=== PATIENT | female | born 1930 | race Caucasian/White ===

== ENCOUNTER 2017-03-21 12:31 | Inpatient (IN) ==
[2017-03-21] MEDS ORDERED: NS 1,000 ML IV ONE ×2 (12:55→19:36)
[2017-03-21] MEDS ORDERED: BOOSTRIX VACCINE IM ONE (12:55)
--- NOTE | 2017-03-21 13:27 | Diag Imaging Result Doc PS360 ---
EXAM : CT HEAD/C-SPINE W/O CONTRAST HISTORY: INJURY TECHNIQUE: CT brain without contrast. CT cervical spine without contrast. Dose reduction protocol. COMPARISON: None. FINDINGS: Head: No parenchymal hemorrhage. No epidural or subdural hematoma. No subarachnoid hemorrhage. No mass identified on this noncontrasted exam. No hydrocephalus. There is mild atrophy. No sinus opacification. Cervical spine: Mild scoliosis with mild degenerative spine changes. No precervical soft tissue swelling. No subluxation. No fracture. IMPRESSION: Head: No hemorrhage. No injury. Mild atrophy. Cervical spine: No acute fracture. Electronically signed by Ronal Oglesby 03/21/2017 1:25 PM
--- NOTE | 2017-03-21 13:31 | Diag Imaging Result Doc PS360 ---
EXAM: CHEST-1 VIEW HISTORY: AMS TECHNIQUE: AP stretcher semierect COMPARISON: 10/14/2015 FINDINGS: The lungs are hyperexpanded. The pulmonary vessels are small. The heart is not enlarged. No pneumonia. No pleural effusions identified. IMPRESSION: Negative exam. Electronically signed by Ronal Oglesby 03/21/2017 1:28 PM
[2017-03-21 13:46] LABS: BASO% 0.1 % (0.0-0.8); EOS# 0.04 X1000 (0.0-0.7); EOS% 0.3 % (0.0-10.0); HEMATOCRIT 48.5 % (37.0-47.0); HEMOGLOBIN 16.6 g/dL (12.0-16.0); IMM GRAN# 0.02 X1000 (0.0-0.04); IMM GRAN% 0.1 % (0.0-0.5); LYMPH# 1.08 X1000 (1.2-3.4); MANUAL DIFF NEEDED? NO; MCH 31.9 PG (27-31); MCHC 34.2 g/dL (33-37); MCV 93.3 FL (81-99); MONO# 0.53 X1000 (0.11-0.59); MONO% 3.9 % (1.7-9.3); MPV 10.5 FL (7.4-10.4); NEUT% 87.6 % (42.2-75.2); PLT 294 X1000 (130-400)
--- NOTE | 2017-03-21 14:05 | EKG Report ---
Test Performed on : 03/21/2017 2:03:04 PM Test Reason : AMS Blood Pressure : / mmHG Vent. Rate : 099 BPM Atrial Rate : 099 BPM P-R Int : 154 ms QRS Dur : 064 ms QT Int : 380 ms P-R-T Axes : 074 063 045 degrees QTc Int : 487 ms Normal sinus rhythm. Right atrial enlargement Borderline ECG When compared with ECG of 17-SEP-2015 07:06, Nonspecific T wave abnormality no longer evident in Lateral leads QT has lengthened Unconfirmed Result
[2017-03-21 14:08] LABS: ALBUMIN 4.5 g/dL (3.5-5.0); CALCIUM 8.9 mg/dL (8.8-10.2); MAGNESIUM 2.1 mg/dL (1.5-2.7); POTASSIUM 3.7 mmol/L (3.5-5.1); TOTAL BILIRUBIN 0.4 mg/dL (0.20-1.00); TOTAL PROTEIN 8.4 g/dL (6.3-8.3)
[2017-03-21 14:27] LABS: URINE CULTURE PL NEEDED? NO
[2017-03-21] MEDS ORDERED: ZOFRAN IV ONE (14:53)
--- NOTE | 2017-03-21 14:54 | PROVIDER DOCUMENTATION ---
This chart was entered by Jocleyn Vernon Scribe, acting as scribe for Jeremiah Haley MD. HPI-Syncope/Dizziness - General Chief Complaint: Fall Stated Complaint: fall Time Seen by Provider: 03/21/17 12:36 Source: patient, family (daughter), EMS Allergies/Adverse Reactions: Patient Allergies Allergy/AdvReac Type Severity Reaction Status Date / Time meperidine HCl * AdvReac Mild Unknown Verified 03/21/17 12:39 [From Demerol] Home Medications: Home Medication List Medication Instructions Recorded Confirmed Last Taken Type Cholecalciferol (Vitamin D3) 1,000 unit PO DAILY 03/08/17 03/21/17 03/08/17 History [Vitamin D3] Pantoprazole [Protonix] 40 mg PO DAILY@0700 03/08/17 03/21/17 03/08/17 History - History of Present Illness-Syncope/Dizzy Nature of Presenting Problem: pt states BARBACK she was walking into her kitchen became tired and laid her head on the counter, when she woke up she was in the floor with blood around her head. pt does not remember the syncopal episode. pt has edema and dried blood to occipital scalp and c/o nausea and vomiting so she has not ate since Tuesday. pt c/o fatigue and weakness and just wants rest. daughter states when she called her at 1045 her mother didnt sound right in her speech so she left work to check on her. pt can normally ambulate well in her home but when daughter arrived pt was only able to take a few steps with her walker and had to lean against the wall to rest If witnessed syncope, by whom?: not witnessed Prior Episodes: reports: single episode today Onset/Duration: reports: unsure Timing: reports: improving Position/Activity at time of episode: reports: standing Symptoms prior to episode: reports: nausea/vomiting (3 days), unknown (just becoming tired). denies: confusion, diaphoresis Context: reports: lost consciousness, other (fell backwards from standing) Loss of Consciousness: unsure Current Symptoms: reports: none/feels normal, nausea (nausea is her normal per pt). denies: vomiting Recently Seen Here or By Another Healthcare Provider: No Review of Systems - Adult - REVIEW OF SYSTEMS - ADULT Constitutional: reports: see katy BAER. denies: chills, fever, night sweats , weight gain, weight loss Eyes: denies: dry eyes, eye pain Ears, Nose, Mouth & Throat: denies: ear discharge, ear pain, sinus problem, throat pain Cardiovascular: reports: syncope. denies: chest pain, palpitations Respiratory: denies: cough, shortness of breath, wheezing Gastrointestinal: reports: abdominal pain (nausea), nausea, poor appetite (when pt eats a large meal she will vomit). denies: diarrhea Genitourinary: reports: no symptoms reported Musculoskeletal: denies: back pain, neck pain Integumentary: reports: see HPI, other (pt has small bruise to occipital head with mild bleeding) Neurological: reports: syncope. denies: dizziness/vertigo, headache/migraines, tremors Psychiatric: reports: no symptoms reported Endocrine: reports: no symptoms reported Hematologic/Lymphatic: reports: no symptoms reported Allergic/Immunologic: reports: no symptoms reported Past History - Adult - PAST MEDICAL HISTORY-ADULT Review of Records: reports: Old Records Reviewed, Nursing Assessment Review, Medications Reviewed Gastrointestinal: reports: diverticulosis, GERD - PRIOR SURGERIES/PROCEDURES Surgical/Procedure History: reports: none - IMMUNIZATION STATUS Childhood Immunizations: See Nurse Assessment Flu Vaccine: See Nurse Assessment - SOCIAL HISTORY Smoking: cigarettes, less than 1 pack/day Provider spent 3-5 mins advising pt. on dangers of tobacco.: Discussed manners to quit use, and f/u contacts for add'l counseling. Substance Use: denies Alcohol Use Frequency: never Living Situation: alone (daughter lives down the road a short distance) Physical Exam-General - PHYSICAL EXAM-ADULT Initial Vital Signs Reviewed: Yes - CONSTITUTIONAL General Appearance: appears well, alert, no apparent distress, thin - EYES Eyes: PERRL/EOMI, pink conjunctivae - HEAD, EARS, NOSE, MOUTH & THROAT HENMT: normocephalic/atraumatic, moist mucous membranes, normal ENT inspection, TMs normal, pharynx normal - NECK Neck: non-tender, full range of motion, supple, normal inspection - RESPIRATORY Respiratory: chest non-tender, lungs clear, normal breath sounds, no pleuratic chest pain, no respiratory distress, no accessory muscle use - CARDIOVASCULAR Cardiovascular: normal peripheral pulses, regular rate, rhythm, no edema, no gallop, no JVD, no murmur - GASTROINTESTINAL (ABDOMEN) Abdominal Exam: normal bowel sounds, non tender, soft, distended (per normal per daughter). negative: guarding, rigid, rebound, tenderness - LYMPHATIC Lymphatic: no adenopathy - MUSCULOSKELETAL Back Exam: normal inspection, no CVA tenderness, no vertebral tenderness Extremity: normal range of motion, non-tender, normal inspection, no pedal edema , no calf tenderness, normal capillary refill - SKIN Integumentary: normal color, normal turgor, warm/dry - NEUROLOGIC Neurologic: latexer II-XII nml as tested, grossly normal, no motor/sensory deficits - PSYCHIATRIC Psych/Mental Status: normal mood/affect, normal thought content, normal thought process, oriented x 3 Progress - PLAN OF CARE/RESULTS Progress/Plan/Lab Results: Vital Signs - 8 hr 03/21/17 12:32 Pulse Rate 99 H Respiratory Rate 18 Blood Pressure 110/75 O2 Sat by Pulse Oximetry 97 Laboratory Results - last 24 hr 03/21/17 03/21/17 03/21/17 13:00 13:00 13:00 WBC RBC Hgb Hct MCV MCH MCHC RDW Std Deviation Plt Count MPV Immature Gran % (Auto) Neut % (Auto) Lymph % (Auto) [place] % (Auto) Eos % (Auto) Baso % (Auto) Immature Gran # (Auto) Neut # (Auto) Lymph # (Auto) [place] # (Auto) Eos # (Auto) Baso # (Auto) Sodium 137 Potassium 3.7 Chloride 89 L Carbon Dioxide 29 Anion Gap 20 BUN 26 H Creatinine 1.8 H Estimated GFR/1.73 m2 27 BUN/Creatinine Ratio 14 Glucose 171 H Calculated Osmolality 283 Calcium 8.9 Magnesium 2.1 Total Bilirubin 0.40 AST 27 ALT 24 Alkaline Phosphatase 70 Creatine Kinase 59 Troponin T < 0.010 Lgz-N-Rbysafucodq Pept 448 Total Protein 8.4 H Albumin 4.5 Globulin 4.0 Albumin/Globulin Ratio 1.0 Lipase 35 Plasma/Serum Ethyl Alc 03/21/17 03/21/17 13:00 13:00 WBC 13.54 H RBC 5.20 Hgb 16.6 H Hct 48.5 H MCV 93.3 MCH 31.9 H MCHC 34.2 RDW Std Deviation 15.4 H Plt Count 294 MPV 10.5 H Immature Gran % (Auto) 0.1 Neut % (Auto) 87.6 H Lymph % (Auto) 8.0 L [place] % (Auto) 3.9 Eos % (Auto) 0.3 Baso % (Auto) 0.1 Immature Gran # (Auto) 0.02 Neut # (Auto) 11.85 H Lymph # (Auto) 1.08 L [place] # (Auto) 0.53 Eos # (Auto) 0.04 Baso # (Auto) 0.02 Sodium Potassium Chloride Carbon Dioxide Anion Gap BUN Creatinine Estimated GFR/1.73 m2 BUN/Creatinine Ratio Glucose Calculated Osmolality Calcium Magnesium Total Bilirubin AST ALT Alkaline Phosphatase Creatine Kinase Troponin T Wgw-V-Yzedtpfizda Pept Total Protein Albumin Globulin Albumin/Globulin Ratio Lipase Plasma/Serum Ethyl Alc Orders Category Date Time Status Cardiac Monitoring DIRECTED Care 03/21/17 12:55 Active Finger Stick Blood Sugar (ED) DIRECTED Care 03/21/17 12:55 Active Saline Loc NOW Care 03/21/17 12:55 Active CHEST-1 VIEW [RAD] Stat Exams 03/21/17 12:[address] HEAD/C-SPINE W/O CONTRAST [CT] Stat Exams 03/21/17 12:55 Completed ALCOHOL BLOOD Stat Lab 03/21/17 13:00 Completed CBC WITH ELECTRONIC DIFF [HEME] Stat Lab 03/21/17 13:00 Completed CK PROFILE [SP CHEM] Stat Lab 03/21/17 13:00 Completed COMPREHENSIVE METABOLIC PANEL [CHEM] Stat Lab 03/21/17 13:00 Completed LIPASE [CHEM] Stat Lab 03/21/17 13:00 Completed MAGNESIUM [CHEM] Stat Lab 03/21/17 13:00 Completed PRO B-NATRIURETIC PEPTIDE Stat Lab 03/21/17 13:00 Completed TROPONIN T Stat Lab 03/21/17 13:[address] W/POSS RFLX CULT [URINALYSIS] Stat Lab 03/21/17 14:15 Received 0.9% Sodium Chloride Inj [Ns] 1,000 ml Med 03/21/17 12:55 Active IV 150 mls/hr Diph,Pertuss(Acell),Tet Vac/Pf [Boostrix Vaccine] Med 03/21/17 12:55 Discontinued 0.5 ml IM .ONCE ONE Pulse Oximetry Stat Oth 03/21/17 12:55 Active EKG [EKG] Stat Ther 03/21/17 12:55 Draft Result Diagrams: 03/21/17 13:00 03/21/17 13:00 - XRAY 1 XRAY Study: Chest Impression: Normal - CT/MRI 1 CT Study: Head, Neck Impression: Normal - CONSULTS/PCP/HOSPITALIST Notification #1 *Consult/PCP/Hospitalist*: Dr. Ramires Time Discussed: 14:51 Consult Disposition: Will see in ED, Admit Departure - Departure Date of Disposition Decision: 03/21/17 Time of Disposition Decision: 14:51 DIAGNOSIS: Head injury, Acute renal failure, Nausea & vomiting Disposition: ADMITTED INPATIENT 09 Certified Medical Emergency: Emergent Condition: Stable Referrals and Follow-Ups: Ely Hinds MD [Primary Care Provider] - - Critical Care Note This patient required my direct & personal management of CC.: No Attestation - Physician/ GUICHO Attestation Patient care was provided by Advanced Practice Provider:: No The physician spent face to face time with patient:: Yes Advanced Practice Provider documentation review:: Supervising physician onsite and consulted in the evaluation and care of this patient. The physician did have a face to face encounter with the patient. This chart was documented by the indicated scribe, (Jocelyn Vernon Scribe) and accurately reflects the services I performed and decisions made by me, Jeremiah Haley MD, as attested by the provider's signature.
[2017-03-21 15:01] LABS: BILIRUBIN URINE 1+ (NEGATIVE); BLOOD URINE 2+ (NEGATIVE); CLARITY CLEAR (CLEAR); COLOR YELLOW; LEUKOCYTES URINE 2+ (NEGATIVE); NITRITE URINE POSITIVE (NEGATIVE); PH URINE 6.5; PROTEIN URINE 2+(100 mg/dL) mg/dL (NEGATIVE); UROBILINOGEN URINE 1+(1 mg/dL)
[2017-03-21 15:11] LABS: URINE EPITHELIAL CELLS <10 /HPF (<10); URINE RBC <10 /HPF (<10); URINE SOURCE CLEAN CATCH; URINE WBC <10 /HPF (<10)
[2017-03-21] MEDS ORDERED: ZOFRAN IV PRN (18:32)
[2017-03-21] MEDS ORDERED: SODIUM CHLORIDE 0.9% INJ SCH (19:30)
[2017-03-21] MEDS ORDERED: FLAGYL 500 MG/NS 500 MG/100 ML IVPB IV SCH (19:30)
[2017-03-21] MEDS ORDERED: MISC. PHARMACY COMMUNICATION SCH (19:45)
--- NOTE | 2017-03-21 20:14 | HISTORY AND PHYSICAL ---
PRIMARY CARE PHYSICIAN: Dr. Ely Hinds. CHIEF COMPLAINT: Fall. HISTORY OF PRESENT ILLNESS: This is an 86-year-old female who presented to the emergency room after having a syncopal episode. The patient states that she remembers walking into her kitchen. She laid her head on the counter, then she awoke on the floor with blood next to her. She has no memory of passing out nor can she remember why she laid her head on the counter. She was not incontinent of stool or urine. She did state that she has been nauseated since Tuesday and has not eaten any food and has taken very little liquid in. She denies any vomiting or any diarrhea or constipation. She did undergo a flexible sigmoidoscopy in February 2017 for diarrhea and new fecal incontinence. At that time she was found to have diverticulosis with a surgical absent sigmoid colon with large external hemorrhoids. 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 She is followed by Dr. Lorin Osorio. In review of her labs, she was found to have a creatinine of 1.8 with her baseline being 0.7 - 0.8 over the last 5 years. PAST MEDICAL HISTORY: 1. Intestinal pseudoobstruction with intermittent vomiting. 2. Bacterial overgrowth. 3. Diverticulosis. 4. History of fecal incontinence. 5. Gastroesophageal reflux disease. 6. Gastroparesis. PAST SURGICAL HISTORY: Colon resection with removal of sigmoid colon. SOCIAL HISTORY: She smokes a pack a day. She denies alcohol or illicit drug use. ALLERGIES: Demerol. HOME MEDICATIONS: Vitamin D3 and Protonix. REVIEW OF SYSTEMS: A 14-point review of systems was discussed with the patient with pertinent positives stated in HPI. She denies chest pain, palpitations, dizziness, vomiting, black or bloody vomitus, black or bloody stools, hematuria, dysuria, frequency or urgency. PHYSICAL EXAMINATION: VITAL SIGNS: Blood pressure is 117/67 with a heart rate of 107, respirations are 16, temperature is 98.8 degrees. Orthostatics lying blood pressure 121/74 with a heart rate of 89. Sitting 103/78 with a heart rate of 95. Standing 99/68 with a heart rate of 101. She is slightly orthostatic. HEENT: Head is normocephalic, atraumatic. Pupils equal, round, react to light. EOMs are intact. Sclerae anicteric. Mucous membranes are dry. NECK: Supple with trachea midline. CARDIOVASCULAR: Regular rate and rhythm. S1, S2 appreciated. PULMONARY: Breath sounds are clear with no increased work of breathing noted. GASTROINTESTINAL: Abdomen is soft, nontender, nondistended with bowel sounds in all 4 quadrants. EXTREMITIES: No clubbing, cyanosis, or edema. Calves nontender. Pulses are palpable x 4. MUSCULOSKELETAL: Good range of motion of joints. SKIN: Warm and dry with a small bruise to her occipitis with bleeding controlled. LABS: WBC is 13.5 with hemoglobin 16, hematocrit 48.5, and platelets of 294,000. Sodium is 137, potassium 3.7, BUN 26, creatinine 1.8 with a glucose of 171. Microscopic urine is positive nitrites with less than 10 microscopic red blood cells and less than 10 microscopic white blood cells. This could actually be due to contamination. Urine culture will be pending. CT of the head and cervical spine reveals no hemorrhage, no injury, mild atrophy with no acute fracture to the cervical spine. Chest x-ray revealed a negative exam, hyperexpanded lungs. The pulmonary vessels are small. No pneumonia and no pleural effusions. ASSESSMENT: 1. Syncope with collapse. 2. Head injury. 3. Acute renal failure secondary to dehydration. 4. Dehydration. 5. Nausea and vomiting. 6. 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 7. Gastroparesis. 8. Diverticulosis. 9. Leukocytosis. PLAN: She will be admitted to the hospital. We will give her clear liquids as tolerated, gentle IV hydration. We will trend labs in the morning. She is slightly orthostatic. Will repeat orthostatics in the morning and tomorrow afternoon. Neuro checks. Will start Flagyl for the chronic bacterial overgrowth. We will confer with Dr. Osorio who is her linux consultant. We will give IV Protonix. Further treatments pending hospital course. Dictated by ERICKSON Israel for Favio Ramires MD cc: ERICKSON Israel MD
[2017-03-21] MEDS: PROTONIX IV SCH (20:24)
[2017-03-21] MEDS: ZOSYN 2.25 GM in NS 50 ML IV SCH (20:24)
--- NOTE | 2017-03-21 20:32 | PROGRESS NOTE ---
DATE: 03/21/2017 ADDENDUM: Patient seen and examined by myself. Full note dictated by nurse practitioner. SUBJECTIVE: Patient notes that she has not been feeling well for the past couple of days. She has had increased fatigue and weakness. States that she has had some falling and has been unable to care for herself at home. Therefore, her daughter brought her to the emergency department. Her baseline creatinine on record was 0.5, her current creatinine is 1.8. She states she has had nausea and vomiting for the last 3 or 4 days and has been unable to keep anything down. She has been having increasing reflux, has not been taking any kind of reflux medications, however. OBJECTIVE: Vital signs are stable. Patient is awake and alert. She is in no distress. She is feeling okay currently. She has not tried to eat or drink anything. She has not had any vomiting since being in the hospital. ASSESSMENT: The patient is dehydrated. She is having nausea and vomiting, certainly having some reflux symptoms. We will place her in the hospital. IV fluids. Reflux medication. We will continue to follow. Further orders as needed. cc: Favio Ramires MD
[2017-03-22] MEDS: ZOSYN 2.25 GM in NS 50 ML IV SCH ×2 (04:48→21:07)
[2017-03-22] MEDS: PROTONIX IV SCH ×2 (06:30→21:08)
[2017-03-22 06:51] LABS: ALBUMIN 3.3 g/dL (3.5-5.0); MAGNESIUM 1.6 mg/dL (1.5-2.7); POTASSIUM 3.2 mmol/L (3.5-5.1); TOTAL BILIRUBIN 0.3 mg/dL (0.20-1.00); TOTAL PROTEIN 5.9 g/dL (6.3-8.3)
[2017-03-22 06:53] LABS: HEMATOCRIT 37.3 % (37.0-47.0); HEMOGLOBIN 12.3 g/dL (12.0-16.0); MCH 31.1 PG (27-31); MCV 94.2 FL (81-99); MPV 10.6 FL (7.4-10.4); RBC 3.96 XMIL (4.2-5.4)
[2017-03-22 07:04] LABS: CALCIUM 6.8 mg/dL (8.8-10.2)
[2017-03-22] MEDS ORDERED: CALCIUM GLUCONATE 1 GM in NS 50 ML IV ONE (07:30)
[2017-03-22] MEDS: POTASSIUM CHLORIDE IV ONE ×3 (08:00→14:40)
[2017-03-22] MEDS: NS IV ONE ×3 (08:00→14:40)
[2017-03-22] MEDS: CALCIUM GLUCONATE IV ONE ×3 (08:00→14:40)
--- NOTE | 2017-03-22 08:46 | PROGRESS NOTE ---
DATE: 03/22/2017 SUBJECTIVE: Ms. Sinclair states that she feels better today. She has no nausea. She does state that she is hungry. She denies any nausea, vomiting, any shortness of breath, any chest pain. OBJECTIVE: Vital Signs: Blood pressure is 100/54 with a heart rate of 84, respirations are 16, temperature is 98.9 degrees oral with room air saturations 98%. Orthostatics vital signs, lying blood pressure is 102/56 with a heart rate of 80. Sitting blood pressure is 91/59 with a heart rate of 66, and standing blood pressure is 84/54 with a heart rate of 85. She is slightly orthostatic. Cardiovascular: Regular rate and rhythm. S1 and S2 appreciated. Pulmonary: Breath sounds are clear. No increased work of breathing noted. Gastrointestinal: Abdomen is soft, nontender, nondistended with bowel sounds in all 4 quadrants. Back: No CVAT. No spine tenderness. Extremities: No clubbing, cyanosis, or edema. Calves are nontender. Pulses are palpable x4. Skin: Warm and dry with no rashes or lesions noted. LABS: WBC is 8.6, with a hemoglobin of 12.3, hematocrit 37.3 and platelets of 187,000. Sodium is 138, potassium is 3.2, BUN is 24, creatinine 1.1 with a glucose of 102. Calcium is 6.8, corrected is 7.2. Urine culture is pending. PROBLEM LIST: 1. Syncope with collapse. The patient has had no further syncopal episodes. We will continue with telemetry and monitor. 2. Head injury. This was superficial. She has no further bleeding. 3. Acute renal failure secondary to hydration. Creatinine is improving. We will continue with gentle hydration and trend labs. 4. Dehydration. We will continue with gentle hydration. 5. Nausea and vomiting resolved. She has had no further since admission. 6. 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 She has been placed on Zosyn with renal dosing. Dr. Osorio is following with us. CT of the abdomen and pelvis with oral contrast is pending today. 7. Gastroparesis. Aware. 8. Diverticulosis. Aware. 9. Leukocytosis. Improved. 10. Hypokalemia/hypocalcemia. Will replete electrolytes and trend labs daily. Dictated by ERICKSON Israel for Rahat Gomez MD cc: ERICKSON Israel MD
[2017-03-22] MEDS ORDERED: ZOSYN 2.25 GM in NS 50 ML IV SCH (11:00)
--- NOTE | 2017-03-22 11:35 | Diag Imaging Result Doc PS360 ---
EXAM: CT ABD/PELVIS ORAL CONTR ONLY INDICATION: PSEUDOOBSTRUCTION COLON TECHNIQUE: Dose reduction protocol was used. COMPARISON: 06/23/2013 FINDINGS: There is marked distention of the stomach with fluid and gas in the lumen and even worse distention of the duodenum. Essentially the entire remainder of the small bowel is also distended containing fluid and droplets of gas but to a lesser degree. On the last CT from 2013 there was similar distention of the duodenum but it was less severe. As such, it may represent a chronic functional obstruction. However, it would be difficult to distinguish this from a superimposed partial mechanical obstruction given that it does appear worse than the prior study. There is stool throughout the colon but the colon is not significantly distended. No definite free abdominal gas is appreciated. There is marked intrahepatic and extrahepatic biliary dilatation. This was seen on the previous study as well, but it has worsened. The spleen is unremarkable. There is mild left adrenal gland thickening that appear stable suggesting mild hyperplasia. The kidneys are grossly unremarkable. The pancreas is grossly unremarkable. The bones are osteopenic and there are degenerative changes involving the spine. IMPRESSION: 1.Small bowel distention as described with marked duodenal and gastric distention that is worse than the previous study in 2013. Please see the above discussion. 2.Biliary dilatation that has worsened during the interval. Electronically signed by Roland Sarkar 03/22/2017 11:33 AM
[2017-03-22 14:03] LABS: OCCULT BLOOD 1 NEGATIVE (NEGATIVE)
--- NOTE | 2017-03-22 15:00 | PROGRESS NOTE ---
DATE: 03/22/2017 Briefly this is a 86-year-old female with a partial small bowel obstruction. CT shows worsening gastric distention and obstruction. She had significant gastric distention with fluid inside. Her abdominal exam was soft, nontender, distended bowel sounds were quiet, decreased bowel sounds. We discussed the case with Dr. Osorio. She would prefer her having her over at the other hospital so she can be under her care. I do think she needs an NG tube for decompression. Per Dr. Osorio she has recurrent gastroparesis and gastric distention. This is not a new issue but is a worsening issue from previous. Her syncope and collapse is likely related to just dehydration and those kinds of issues. Disposition will be per Dr. Osorio when she gets evaluated over there. She is empirically on antibiotics. She does have clinically a urinary tract infection so we will need to set up a urine culture. She is on so we will continue to follow very closely. cc: Rahat Gomez MD
--- NOTE | 2017-03-22 15:58 | Diag Imaging Result Doc PS360 ---
EXAM: CHEST-PORTABLE INDICATION: NGT Placement TECHNIQUE: One view COMPARISON: 03/21/2017 FINDINGS: The newly placed NG tube is identified. It is only a couple centimeters below the GE junction and the tip is assumed to be in the stomach. Consider advancement of 3 to 4 cm for more optimal position. The lungs remain hyperinflated and are grossly clear, otherwise. There is no new consolidation. Cardiac silhouette is stable. IMPRESSION: Interval placement of NG tube as detailed above. Electronically signed by Roland Sarkar 03/22/2017 3:55 PM
[2017-03-22] MEDS ORDERED: NS 1,000 ML IV SCH (17:46)
[2017-03-22] MEDS ORDERED: ZOFRAN IV PRN (19:20)
[2017-03-22] MEDS ORDERED: SODIUM CHLORIDE 0.9% INJ SCH (19:30)
[2017-03-22] MEDS: NS 1,000 ML IV SCH (21:07)
[2017-03-23] MEDS: ZOSYN 2.25 GM in NS 50 ML IV SCH ×4 (01:40→20:31)
[2017-03-23 06:32] LABS: BASO% 0.3 % (0.0-0.8); EOS# 0.02 X1000 (0.0-0.7); EOS% 0.3 % (0.0-10.0); HEMATOCRIT 38.8 % (37.0-47.0); HEMOGLOBIN 12.8 g/dL (12.0-16.0); IMM GRAN# 0.02 X1000 (0.0-0.04); IMM GRAN% 0.3 % (0.0-0.5); LYMPH# 0.67 X1000 (1.2-3.4); LYMPH% 8.5 % (20.5-51.1); MANUAL DIFF NEEDED? YES; MCH 31.8 PG (27-31); MCV 96.3 FL (81-99); MONO% 5.1 % (1.7-9.3); MPV 10.2 FL (7.4-10.4); NEUT% 85.5 % (42.2-75.2); PLT 174 X1000 (130-400); RBC 4.03 XMIL (4.2-5.4)
[2017-03-23 06:57] LABS: AGAP 20; ALBUMIN 3.6 g/dL (3.5-5.0); ALKALINE PHOSPHATASE 54 U/L (32-104); BUN 22 mg/dL (8-22); CALCIUM 7.1 mg/dL (8.8-10.2); CHLORIDE 106 mmol/L (98-107); COSMO 280; GOT 20 U/L (10-30); GPT 17 U/L (10-36); POTASSIUM 3.5 mmol/L (3.5-5.1); SODIUM 140 mmol/L (136-145); TCO2 14 mmol/L (25-35); TOTAL BILIRUBIN 0.42 mg/dL (0.20-1.00); TOTAL PROTEIN 6.1 g/dL (6.3-8.3)
[2017-03-23 07:34] LABS: BANDS 1 % (0-1); LYMPHS 8 % (21-51); MONO 4 % (1-9)
[2017-03-23] MEDS: PROTONIX IV SCH ×2 (08:11→08:13)
[2017-03-23] MEDS: NS 1,000 ML IV SCH (08:12)
[2017-03-23] MEDS ORDERED: CALCIUM GLUCONATE 4.65 MEQ in NS 50 ML IV ONE (09:00)
--- NOTE | 2017-03-23 13:51 | PROGRESS NOTE ---
DATE: 03/23/2017 SUBJECTIVE: This patient states that she is feeling much better. She is tolerating the ice chips. OBJECTIVE: Her abdomen is still distended but, compared with yesterday, it is better. She is still having diarrhea but, compared with yesterday, it is better as well. No acute events overnight. Gastroenterology Department has been consulted pending recommendations. OBJECTIVE: Vital Signs: Temperature 98.3 degrees, pulse 80, respiratory rate 18, blood pressure 111/47, oxygen saturation 98% on room air. HEENT: Head normocephalic. No trauma. PERRLA. Neck supple. No JVD. No masses. Central trachea. Chest clear to auscultation. No wheezing. No rales. Abdomen soft, distended. Mild tenderness to palpation at the level of the epigastric area. Positive bowel sounds. Extremities: No edema. No clubbing. No cyanosis. Neurologic: The patient is alert and oriented x3. No focal deficits. LABORATORY: WBC 7.8, hemoglobin 12.8, hematocrit 38.8, platelets 174,000. Sodium 140, potassium 3.5, chloride 106, bicarbonate 14. BUN 22, creatinine 0.8. Glucose 49. Calcium 7.1. Albumin 3.6. ASSESSMENT AND PLAN: 1. Syncope, no more episodes of syncope. Probably, this patient was severely dehydrated. She looks more hydrated today. We will continue to monitor. 2. Head injury. This was superficial and no more for further bleeding. 3. Acute renal failure secondary to dehydration, resolved. 4. Dehydration, better. Continue with IV fluids. 5. Diarrhea. This is getting better. Continue with IV fluids pending gastroenterology evaluation. 6. Nausea and vomiting, resolved. 7. Gastroparesis, aware. This patient is tolerating ice chips. 8. Diverticulosis, aware. 9. Leukocytosis, improved. 10. Hypocalcemia. I will replace the calcium today. cc: Vincent Ventura MD
[2017-03-23] MEDS: D5 NS 1,000 ML IV SCH (15:36)
[2017-03-23] MEDS ORDERED: ZANTAC IV SCH (18:15)
[2017-03-23] MEDS: ZANTAC IV SCH (21:13)
[2017-03-23] MEDS: NS IV SCH (21:13)
[2017-03-24] MEDS: ZOSYN 2.25 GM in NS 50 ML IV SCH ×3 (01:32→12:59)
--- NOTE | 2017-03-24 04:24 | CONSULTATION ---
DATE OF CONSULTATION: 03/23/2017 REFERRING PHYSICIAN: Rahat Gomez MD. PRIMARY CARE PROVIDER: Ely Hinds MD. INDICATION FOR CONSULTATION: 1. Diarrhea. 2. Abdominal pain. 3. Intestinal pseudoobstruction. 4. Nausea. 5. Volume depletion. HISTORY OF PRESENT ILLNESS: The patient is an 86-year-old white female, who has been followed in our clinic. 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 The patient states that approximately 3-4 days prior to admission, she developed malaise and fatigue as well as increasing diarrhea. She was evaluated in our clinic and placed on a course of Flagyl as her insurance co-pay on the Xixan is more than a $1000. On Flagyl, she developed nausea and a metallic taste in her mouth. As a consequence, she stopped eating and drinking as much. She became dehydrated and sustained a fall on the floor with a laceration to the posterior scalp. After her fall, the patient does not recall how long she was unconscious on the floor. However, she crawled into bed and went back to sleep for several hours. When she awakened, she reports that the nausea was worse, and she had a severe headache. She contacted her daughter, who brought her to the emergency room. She was admitted to [facility]. Because of her marked increased abdominal distention, a CT scan was performed and was remarkable for worsening small bowel distention with gastric and duodenal distention that was worse than her previous study in 2013. In addition, she has had long-standing intra and extrahepatic ductal dilation of unknown cause. There has been interval worsening of the ductal dilation on CT scan as well. Clinically, she had nausea with dry heaves but no vomiting. She reports the onset of diarrhea after initiation of treatment with Protonix therapy. Because of the above, we are asked to participate in her care. PAST MEDICAL HISTORY: 1. Intestinal pseudoobstruction. 2. Bacterial overgrowth. 3. Diverticulosis. 4. Fecal incontinence. 5. Gastroesophageal reflux disease. 6. Gastroparesis. 7. Diverticulosis. 8. Marasmus. 9. Osteoporosis. 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 11. History of recurrent erosive esophagitis. 12. Hiatal hernia. 13. Hypokalemia. 14. Gastric ulcers. 15. Duodenal ulcers. 16. Right hip fracture after a fall in August 2015. SURGICAL HISTORY: 1. Partial colectomy for diverticular disease. 2. Right hip surgery. 3. Bilateral cataract surgery. MEDICATION ALLERGIES: 1. Demerol. 2. The patient develops diarrhea with PPI therapy, which is newly diagnosed this admission. HOME MEDICATIONS: 1. Protonix. 2. Vitamin D 1000 units daily. SOCIAL HISTORY: The patient smokes 1 pack of cigarettes per day, and has done so for many years. She denies alcohol, recreational drug use. FAMILY HISTORY: Noncontributory. PHYSICAL EXAMINATION: Vital signs: Her blood pressure is 98/50, pulse is 94, respirations 16, temperature of 98.6 degrees. Her blood pressure supine is 98/50, pulse of 94, sitting is 85/44 with a pulse of 88. Standing blood pressure is 85/47, with a pulse of 94. HEENT: Negative for jaundice. Her oropharyngeal mucosa membranes are dry. Pulmonary: Lungs are clear to auscultation with normal expiratory effort. Cardiovascular: Reveals regular rate and rhythm with no gallops or rubs. Abdominal: Reveals hypoactive bowel sounds. The abdomen is soft and distended, but is near her baseline. There is no rebound or guarding. There is a nasogastric tube in place for gastric decompression. Extremities: Bilaterally are negative for cyanosis, clubbing, or edema. OBJECTIVE DATA: Remarkable for hemoglobin 12.8 with hematocrit of 38.8, and a white count of 7.84, and 174,000 platelets. Sodium is 140, potassium 3.5, chloride 106, CO2 of 14, BUN 22, creatinine 0.8 with a glucose of 49. Her calcium is 7.1, total bilirubin 0.42, AST 20, ALT 17, alkaline phosphatase 54, total protein 6.1, and albumin of 3.6. IMPRESSION: 1. Nausea with vomiting. 2. Diarrhea. 3. Hypoglycemia. 4. Known intestinal pseudoobstruction. 5. Dilated hepatic ducts with no evidence of elevated liver function tests. RECOMMENDATION: 1. The patient most likely is suffering from bacterial overgrowth again. She has historically responded to nasogastric tube decompression along with IV antibiotics. Therefore, I recommend that we continue IV Zosyn. She may be able to transition to oral Augmentin for a total of 10 days of antibiotics once the nausea with vomiting resolves. 2. The patient had diarrhea when we administered IV Protonix. Therefore, I will discontinue the Protonix and begin ranitidine 50 mg IV q.8 hours. At home, I will transition her to Zantac 150 mg p.o. b.i.d. 3. Continue vitamin D supplementation. 4. The patient has improved clinically following 24 hours of decompression. Therefore, I would advance her to a clear liquid diet especially in light of her hypoglycemia. 5. Tomorrow, I will obtain an MRI of the abdomen to further evaluate the hepatobiliary tree including the pancreas. This is worrisome in light of her failure to thrive. 6. Additional recommendations to follow based on her clinical course. cc: MD Rahat Ambrosio MD Bernice Swain, MD Omar J. Sosa-Chirinos, MD
[2017-03-24] MEDS: D5 NS 1,000 ML IV SCH ×3 (05:21→15:00)
[2017-03-24] MEDS: NS IV SCH ×3 (05:21→20:44)
[2017-03-24] MEDS: ZANTAC IV SCH ×3 (05:21→20:44)
[2017-03-24 06:23] LABS: BASO% 0.1 % (0.0-0.8); EOS# 0.02 X1000 (0.0-0.7); EOS% 0.2 % (0.0-10.0); HEMATOCRIT 32.1 % (37.0-47.0); HEMOGLOBIN 10.9 g/dL (12.0-16.0); IMM GRAN# 0.02 X1000 (0.0-0.04); IMM GRAN% 0.2 % (0.0-0.5); LYMPH% 6.8 % (20.5-51.1); MANUAL DIFF NEEDED? YES; MCH 32.2 PG (27-31); MCV 94.7 FL (81-99); MONO# 0.43 X1000 (0.11-0.59); MONO% 4.9 % (1.7-9.3); MPV 10.3 FL (7.4-10.4); NEUT% 87.8 % (42.2-75.2); PLT 167 X1000 (130-400); RBC 3.39 XMIL (4.2-5.4)
[2017-03-24 07:05] LABS: AGAP 11; BUN 14 mg/dL (8-22); CALCIUM 7.8 mg/dL (8.8-10.2); CHLORIDE 110 mmol/L (98-107); COSMO 283; POTASSIUM 3.2 mmol/L (3.5-5.1); SODIUM 140 mmol/L (136-145); TCO2 19 mmol/L (25-35)
[2017-03-24] MEDS ORDERED: KLOR-CON PO ONE (07:29)
[2017-03-24 08:41] LABS: LYMPHS 13 % (21-51); MONO 3 % (1-9)
--- NOTE | 2017-03-24 11:00 | Diag Imaging Result Doc PS360 ---
EXAM: MRI ABDOMEN W/O CONTRAST (MRCP) INDICATION: increased ductal dilation TECHNIQUE: COMPARISON: CT abdomen and pelvis dated 03/22/2017. No prior MRIs available for comparison. FINDINGS: As was seen on the recent CT, there is prominent intrahepatic and extrahepatic biliary dilatation. The common bile duct measures up to 1.6 cm in diameter. As the common bile duct approaches the duodenum, it tapers as expected. No definite ductal filling defect or discrete stricture is identified. If there were a focal obstructing lesion, it would probably be at the ampulla. However, no discrete lesion can be identified on this study. The gallbladder is moderately distended and is unremarkable, otherwise. The pancreatic duct is only mildly prominent. The liver parenchyma is grossly unremarkable. The spleen is unremarkable. Like on the recent prior CT, there is marked distention of the duodenum. However, the distention of the remainder of the small bowel that was seen on the previous study has improved significantly. The stomach is also distended but is less so than the previous CT. The kidneys are grossly unremarkable. IMPRESSION: 1.Marked biliary dilatation with a common bile duct measuring up to 1.6 cm. Please see above discussion. 2.Marked distention of the duodenum similar to the previous study. However, the rest of the small bowel distention seen on the previous study has improved. Electronically signed by Roland Sarkar 03/24/2017 10:58 AM
--- NOTE | 2017-03-24 15:27 | PROGRESS NOTE ---
DATE: 03/24/2017 SUBJECTIVE: This patient states that she is feeling better. She still has the NG tube. She is she is not complaining of diarrhea today. Dr. Osorio is following this patient closely. She has requested an MRI of the abdomen that showed marked biliary dilation with a coma bile duct measuring up to 1.6 cm and marked kept distention of the duodenum similar to the previous study; however, the rest of the small bowel distention seen on the previous study has improved. OBJECTIVE: Vital Signs: Temperature 98 degrees, pulse 59, respiratory rate 16, blood pressure 80/37, oxygen saturation 100% on room air. HEENT: Head normocephalic. No trauma. PERRLA. Neck supple. No JVD. No masses. Central trachea. Chest: Clear to auscultation. No wheezing. No rales. Abdomen soft. Mild tenderness to palpation at the level of the epigastric area. Positive bowel sounds. Extremities: No edema. No clubbing. No cyanosis. Neurological: The patient is alert and oriented x3. No focal deficits. LABORATORY: WBC 8.7, hemoglobin 10.9, hematocrit 32.1, platelets 167,000. Sodium 140, potassium 3.2, chloride 110, bicarbonate 19. BUN 14, creatinine 0.7, glucose 156. Calcium 7.8. ASSESSMENT AND PLAN: 1. No more syncopal episodes. Probably, this patient was immediately dehydrated due to diarrhea. 2. Abdominal bacterial overgrowth. Apparently, this has been recurrent. This patient has been on Zosyn and Dr. Osorio has recommended to continue with IV antibiotics. She may be able to transition to oral Augmentin for a total of 10 days of antibiotics. I will do that because this patient is still complaining of nausea or vomiting. 3. Acute renal failure secondary to dehydration, resolved. 4. Dehydration, resolved. 5. Diarrhea; getting better. No more diarrhea. 6. Nausea and vomiting, resolved. 7. Gastroparesis, aware. The patient is tolerating diet. 8. Diverticulosis, aware. 9. Leukocytosis, improved. 10. Hypocalcemia, improved. cc: Vincent Ventura MD
[2017-03-24] MEDS: AUGMENTIN PO SCH (20:44)
[2017-03-24 21:37] LABS: ALBUMIN 3.1 g/dL (3.5-5.0); ALKALINE PHOSPHATASE 41 U/L (32-104); DIRECT BILIRUBIN < 0.20 mg/dL (0.00-0.20); GOT 19 U/L (10-30); GPT 13 U/L (10-36); TOTAL BILIRUBIN 0.64 mg/dL (0.20-1.00); TOTAL PROTEIN 5.2 g/dL (6.3-8.3)
[2017-03-24 23:28] LABS: HEMATOCRIT 31.2 % (37.0-47.0); HEMOGLOBIN 10.7 g/dL (12.0-16.0); MCH 32.5 PG (27-31); MCHC 34.3 g/dL (33-37); MCV 94.8 FL (81-99); MPV 9.8 FL (7.4-10.4); RBC 3.29 XMIL (4.2-5.4)
[2017-03-24 23:52] LABS: IRON SATURATION 40 %; TIBC 150 ug/dL; TOTAL IRON 60 ug/dL (49-151); UNBOUND IRON 90 ug/dL (112-346)
[2017-03-25 00:09] LABS: FERRITIN 435 ng/mL (13-150)
[2017-03-25] MEDS: NS IV SCH ×2 (05:18→15:46)
[2017-03-25] MEDS: ZANTAC IV SCH ×2 (05:18→15:46)
[2017-03-25] MEDS: D5 NS 1,000 ML IV SCH (05:18)
[2017-03-25 05:44] LABS: MANUAL DIFF NEEDED? NO
[2017-03-25 05:55] LABS: BASO% 0.3 % (0.0-0.8); EOS# 0.04 X1000 (0.0-0.7); EOS% 0.6 % (0.0-10.0); HEMATOCRIT 32.2 % (37.0-47.0); HEMOGLOBIN 10.9 g/dL (12.0-16.0); LYMPH# 0.81 X1000 (1.2-3.4); LYMPH% 11.3 % (20.5-51.1); MCH 32.1 PG (27-31); MCHC 33.9 g/dL (33-37); MCV 94.7 FL (81-99); MONO# 0.43 X1000 (0.11-0.59); MPV 10.7 FL (7.4-10.4); NEUT% 81.8 % (42.2-75.2); PLT 147 X1000 (130-400)
--- NOTE | 2017-03-25 05:56 | PROGRESS NOTE ---
DATE: 03/24/2017 SUBJECTIVE: The patient states that she is feeling much better today. The nausea with vomiting has resolved. Her abdominal distention has return to her usual baseline with the administration of IV, and now oral antibiotics. She states that she is hungry, and would like to have her nasogastric tube removed. She denies nausea with vomiting, abdominal pain, fever and chills. She notes that her last bowel movement was on 03/23/2017, and was normal. PHYSICAL EXAMINATION: Vital Signs: On exam, her blood pressure was 86/45, pulse is 60, respirations 16, temperature of 97.3 degrees. Repeat vitals using appropriate-sized blood pressure cuff and performed manually revealed a supine blood pressure 124/66 and pulse of 52. Sitting, her blood pressure was 145/30 and pulse 52. Standing, 145/138 and pulse of 60. Repeat blood pressure 40 minutes later was 110/55. HEENT: Unremarkable. She has a nasogastric tube in left naris. Pulmonary: Lungs are clear to auscultation, with normal expiratory effort. Cardiovascular: Reveals regular rate and rhythm, with no gallops or rubs. Abdominal: Normoactive bowel sounds. The abdomen is soft, but distended. There is no rebound or guarding. Her abdominal distention is approximately at her baseline. OBJECTIVE DATA: Remarkable for hemoglobin of 10.9, with hematocrit of 31.2, and white count of 8.76. She has 167,000 platelets. On serum chemistries, her sodium is 140, potassium 3.2, chloride 110, CO2 19, BUN 14, creatinine 0.7, with a glucose 156. Calcium is 7.8, total bilirubin 0.64, AST 19, ALT 13, alkaline phosphatase 41, total protein 5.2, and albumin 3.1. Her abdominal MRI is remarkable for ductal dilation of the common bile duct up to 1.6 cm. This was associated with intra and extrahepatic biliary dilation. However, there were no masses found, or filling defects. There was no stricture found. The pancreatic duct is only mildly dilated. The liver parenchyma appeared unremarkable. Spleen was unremarkable. It should be noted that the small bowel distention has improved significantly compared with her previous CT performed on admission on 03/22/2017. IMPRESSION: 1. Diarrhea. 2. Nausea, with vomiting. 3. Intestinal pseudoobstruction. 4. Common bile duct and hepatic ductal dilatation. 5. New anemia. RECOMMENDATION: 1. The patient's nausea with vomiting has resolved, and her abdominal distention has improved. Therefore, I will discontinue her nasogastric tube. 2. I will advance her diet to a GI soft diet. 3. Please repeat the CBC, as the interval drop in hemoglobin is unexplained. She has no clinical evidence of bleeding. I will check one tonight and again in the morning. If it remains stable, it is reasonable to consider outpatient management. If it continues to drop, she may require further evaluation. She is currently receiving Augmentin, which may be contributing to her blood count. 4. The patient has not had a bowel movement today. Her bowel movement yesterday was small in volume. Therefore, if she does not have a spontaneous bowel movement in the morning, I will administer a Dulcolax suppository. She should have a regular bowel movement prior to discharge. 5. Because the patient had hypoglycemia, with a blood sugar of 49, I will check a hemoglobin A1c prior to discharge. 6. Her blood pressure was noted to be slightly low today. However, with the use of a pediatric size cuff in this woman of small stature, her blood pressure is normal, suggesting that we need to continue to use a pediatric size cuff in order to obtain an accurate blood pressure measurement. 7. The patient is currently receiving antibiotics for bacterial overgrowth. It is reasonable to continue the antibiotics for a total of 5 days, and then stop. We will plan cycling antibiotics on a monthly basis one week out of the month in order to maintain control of her intraluminal bacterial colony count. 8. I have encouraged the patient to begin a probiotic in order to replete her intestines with healthy bacteria. 9. We will have the patient return to clinic in 2 weeks to assess interval progress. cc: MD Ely Ambrosio MD
[2017-03-25 06:34] LABS: AGAP 8; BUN 8 mg/dL (8-22); CALCIUM 7.9 mg/dL (8.8-10.2); CHLORIDE 113 mmol/L (98-107); COSMO 282; POTASSIUM 3.8 mmol/L (3.5-5.1); SODIUM 142 mmol/L (136-145); TCO2 21 mmol/L (25-35)
[2017-03-25] MEDS ORDERED: DULCOLAX PR ONE ×2 (08:00→10:21)
[2017-03-25] MEDS: AUGMENTIN PO SCH (08:53)
[2017-03-25 13:10] VITALS: BP 139/53
--- NOTE | 2017-03-26 12:08 | DISCHARGE SUMMARY ---
ADMISSION DATE: 03/21/2017 DISCHARGE DATE: 03/25/2017 CONSULTATION: Dr. Osorio with Gastroenterology. PERTINENT PROCEDURES: 1. Head cervical spine CT showed no hemorrhage. No injury. Mild atrophy, cervical spine, no fracture. 2. Abdomen and pelvis CT showed small bowel distention as described with marked duodenal and gastric distention that is worse than previous in 2014. Bilateral dilatation is worse during the interval. 3. Abdominal MRI shows marked biliary dilatation with common bile duct measuring 1.6 cm. Marked distention of the duodenum similar to previous study. However, the rest of the small bowel distention seen on the previous study has improved. DISCHARGE DIAGNOSES: 1. Syncopal episode resolved secondary to dehydration related to diarrhea. 2. Abdominal bacteria overgrowth. This has been recurrent. The patient has been on Zosyn and Dr. Osorio recommends to continue IV antibiotics. She may be able to transition to oral Augmentin for a total of 10 days. Patient's nausea, vomiting and abdominal distention has improved. Her NG tube was discontinued and advanced to a GI soft diet. 3. Acute renal failure secondary to dehydration resolved. 4. Clinical dehydration, resolved. 5. Diarrhea improved. 6. Nausea and vomiting resolved. 7. Gastroparesis aware tolerating diet. 8. Diverticulosis aware. 9. Leukocytosis improved. 10. Hypocalcemia improved. HOSPITAL COURSE: The patient is an 86-year-old female who carries a past medical history of interstitial pseudoobstruction with intermittent vomiting, bacterial overgrowth and diverticulosis, fecal incontinence, GERD, gastro paresis who presented to [facility] ED after having a syncopal episode. The patient remembers walking into her kitchen. She laid her head on the counter and then she woke up on the floor with blood next to her. She had no memory of passing- out nor can she remember why she laid her head on the counter. She was not incontinent of urine or stool. She states that she has been nauseated since Tuesday and had not eaten any food and taken in very little liquid. She denied any vomiting, diarrhea or constipation. She had flexible sigmoidoscopy in February for diarrhea and no fecal incontinence. She was found to have diverticulosis with surgical absent sigmoid colon with large external hemorrhoids. She was started on Flagyl for bacterial overgrowth. She does have a history of intestinal pseudo- obstruction with recurrent bacterial overgrowth followed by Dr. Osorio. On her labs, she was found have a creatinine of 1.8. Her base being 0.7 to 0.8 over the last 5 years. She had a white count of 13, hemoglobin 16, hematocrit 48, platelet count of 294,000, sodium 137, potassium 3.7, BUN of 26, glucose of 171. Urine was positive for nitrate. Urine culture was pending. CT of the head and cervical spine revealed no injury. No fracture. Chest x-ray was negative. She was started on clear liquids and given gentle hydration. Trending her labs. She was started on orthostatic vital signs with frequent neuro checks. She was started on Flagyl for her chronic bacterial overgrowth. We consulted Dr. Osorio and started on IV Protonix. She was initially admitted to [facility]. Dr. Osorio switched the antibiotics to Zosyn. Dr. Osorio preferred to see her at [facility]. She was transferred. CT showed worsening gastric distention and obstruction. She had significant gastric distention with fluid inside. Her abdomen exam was soft, nontender, and nondistended. Bowel sounds are quiet. Dr. Gomez at [facility] discussed the case with Dr. Osorio. Dr. Gomez felt she needed an NG tube for decompression. Per Dr. Osorio, she has recurrent gastroparesis and gastric distention. This was not a new issue but is worsening issue from previous. Her syncope and collapse was related to her dehydration. They did get her transferred to [facility]. They did place an NG tube for 24 hours of decompression. We did get an MRI of the abdomen that showed marked biliary dilatation of the common bile duct measuring 1.6 cm and marked distention of the duodenum similar to previous study. However, the rest of the small bowel distention seen on previous study had improved. Given this information, her NG tube was discontinued. Dr. Osorio, advanced her diet to a GI soft diet. She plans to continue cycling antibiotics on a monthly basis for control of her intraluminal bacterial colony count and encouraged to begin probiotic to replete her intestines with healthy bacteria and return to the clinic in 2 weeks to assess her interval process. VITAL SIGNS AT TIME OF DISCHARGE: Temperature is 98.3 degrees, heart rate 64, respirations 20, blood pressure 139/53. O2 is 100% on room air. DISCHARGE DIET: GI soft with Ensure clears. DISCHARGE MEDICATIONS: As per Dr. Schneider. FOLLOWUP: The patient will be discharged home. She will follow up with Dr. Osorio in 2 weeks. She will continue antibiotics and probiotics as instructed. She can follow up with her primary care physician, Dr. Ely Hinds n 7-10 days. She can return to the ED for any worsening of symptoms. Time discharging this patient: 35 minutes Dictated by ERICKSON Jackson for Vincent Ventura MD cc: MD Ely Escalona MD [facility]
--- NOTE | 2017-03-29 18:41 | ED EKG INTERP ---
This chart was entered by Jocelyn Vernon Scribe, acting as scribe for Jeremiah Haley MD. EKG Interpretation - EKG Time of EKG reading by physician:: 14:03 EKG Read and Signed by:: Jeremiah Haley EKG Interpretation (*Must complete 3 of following elements*): Normal Rate: 99 Rhythm: nsr Comments: right atrial enlargement Attestation - Physician/ GUICHO Attestation Patient care was provided by Advanced Practice Provider:: No The physician spent face to face time with patient:: Yes Advanced Practice Provider documentation review:: Supervising physician onsite and consulted in the evaluation and care of this patient. The physician did have a face to face encounter with the patient. This chart was documented by the indicated scribe, (Jocelyn Vernon Scribe) and accurately reflects the services I performed and decisions made by me, Jeremiah Haley MD, as attested by the provider's signature.
== END 2017-03-25 16:19 | disposition home health service (06) ==
LOC: P.MEDSURG 12:31 → P.ED 12:31 → SUATTDRO 16:04 → OBSVTOIN 16:04 → 4N 03-22 17:14
PROVIDERS: ATTEND Internal Medicine